=== PATIENT | male | born 1945 | race Caucasian/White ===

== ENCOUNTER 2020-02-23 09:28 | Emergency (ER) | payer MEDICARE, MEDICAID ==
[~2020-02-23] VITALS: Ht 162.6 cm; Wt 86.4 kg
[2020-02-23 09:42] VITALS: TEMP 97.8
[2020-02-23 10:20] LABS: BASO # 0.1 (0.0-0.2); BASO % 1.3 % (0.0-2.0); EOS # 0.3 (0.0-0.7); EOS % 6.8 % (0-4.0); GRAN # 2.8 (1.4-6.5); GRAN % 59.1 % (42.2-75.2); HEMATOCRIT 38.4 % (42.0-52.0); HEMOGLOBIN 13.1 g/dl (13.5-18.0); LYMPH # 0.9 (1.2-3.4); LYMPH % 19.5 % (20.0-51.0); MEAN CELL VOLUME 93 fl (80.0-100.0); MEAN CORPUSCULAR HEMOGLOBIN 32 pg (27.0-31.0); MEAN CORPUSCULAR HGB CONC 34 g/dl (33.0-37.0); MEAN PLATELET VOLUME 8.7 fl (7.4-10.4); MONO # 0.6 (0.1-0.6); MONO % 13.1 % (1.7-9.3); PLATELET COUNT 283 K/mm3 (130-400); RED BLOOD COUNT 4.14 M/mm3 (4.20-5.60); REDCELL DISTRIBUTION WIDTH-CV 13.2 % (11.5-14.5)
[2020-02-23 10:23] LABS: COLLECTION METHOD CLEAN CATCH
[2020-02-23 10:30] LABS: PH 6 (5-8); SQUAMOUS EPITHELIAL None Seen /hpf; URINE APPEARANCE Clear; URINE BACTERIA None Seen /hpf; URINE BILIRUBIN Negative (NEGATIVE); URINE BLOOD Negative (NEGATIVE); URINE COLOR Colorless; URINE GLUCOSE Negative (NEGATIVE); URINE KETONE Negative (NEGATIVE); URINE LEUKOCYTE ESTERASE Negative (NEGATIVE); URINE NITRATE Negative (NEGATIVE); URINE PROTEIN(semi-quant) 1+ (NEGATIVE); URINE RBC None Seen /hpf; URINE UROBILINOGEN Negative (NEGATIVE)
[2020-02-23 10:32] LABS: ALBUMIN 4.7 gm/dL (3.5-5.0); BILIRUBIN,TOTAL 0.5 mg/dL (0.0-1.0); CREATININE, serum 0.59 (0.66-1.25); MAGNESIUM 2.1 mg/dL (1.6-2.3); POTASSIUM 3.5 mmol/L (3.4-5.0); TOTAL PROTEIN 8.5 gm/dL (6.4-8.2)
[2020-02-23] MEDS ORDERED: TENORMIN 5050 MG/TAB PO (11:13)
[2020-02-23] MEDS ORDERED: DIOVAN/HCT 12.51 TAB PO (11:13)
[2020-02-23] MEDS ORDERED: TOPROL XL 50MG50 MG PO (11:14)
[2020-02-23] MEDS ORDERED: FLOMAX 0.40.4 MG/CAP PO (11:14)
[2020-02-23 12:06] VITALS: BP 174/111; PULSE 91
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
== END 2020-02-23 11:45 | disposition home or self-care (01) ==
LOC: COL.ER 09:28 → EDSEX 09:30 → COL.ER 09:30
PROVIDERS: Emergency Medicine
DX: I10 Essential (primary) hypertension (principal); F10.20 Alcohol dependence, uncomplicated

== ENCOUNTER → 2020-03-04 | Outpatient (CLI) | payer MEDICARE, MEDICAID ==
[~2020-03-04] MED LIST: DIOVAN/HCT 12.51 TAB PO; FLOMAX 0.40.4 MG/CAP PO; TENORMIN 5050 MG/TAB PO; TOPROL XL 50MG50 MG PO
== END ==
LOC: ZCOL.LAB 16:49
DX: Z20.828 Contact with and (suspected) exposure to other viral communicable diseases (principal)